=== PATIENT | male | born 1985 | race Caucasian/White ===

== ENCOUNTER 2017-12-14 10:54 | Emergency (ER) | payer OTHER ==
[~2017-12-14] VITALS: Ht 188 cm; Wt 111.1 kg
[2017-12-14] MEDS ORDERED: KETOROLAC TROME10 MG PO (11:10)
== END 2017-12-14 11:20 | disposition home or self-care (01) ==
LOC: ED 10:54
DX: S39.012A Strain of muscle, fascia and tendon of lower back, initial encounter (principal); M25.531 Pain in right wrist; Z87.891 Personal history of nicotine dependence; W19.XXXA Unspecified fall, initial encounter; Y93.89 Activity, other specified; Y92.89 Other specified places as the place of occurrence of the external cause; Y99.0 Civilian activity done for income or pay
CPT/HCPCS: 99283

== ENCOUNTER 2018-10-23 17:00 | Emergency (ER) | payer SELFPAY ==
[~2018-10-23] VITALS: Ht 188 cm; Wt 113.5 kg
[~2018-10-23 17:00] MED LIST: KETOROLAC TROME10 MG PO
[2018-10-23] MEDS ORDERED: DAYTIME COLD &237 ML PO (17:20)
[2018-10-23] MEDS ORDERED: PROMETH-CODEIN 65 ML PO (17:38)
[2018-10-23] MEDS ORDERED: ZITHROMAX250 MG PO (17:38)
[2018-10-23] MEDS ORDERED: VENTOLIN HFA18 GM INH (17:38)
== END 2018-10-23 17:52 | disposition home or self-care (01) ==
LOC: ED 17:00
DX: J40 Bronchitis, not specified as acute or chronic (principal); H66.91 Otitis media, unspecified, right ear; Z87.891 Personal history of nicotine dependence
CPT/HCPCS: 99283

== ENCOUNTER 2020-11-30 14:18 | Emergency (ER) | payer OTHER ==
[~2020-11-30] VITALS: Ht 188 cm; Wt 113.4 kg
[~2020-11-30 14:18] MED LIST changes: +DAYTIME COLD &237 ML PO; +PROMETH-CODEIN 65 ML PO; +VENTOLIN HFA18 GM INH; +ZITHROMAX250 MG PO
== END 2020-11-30 15:58 | disposition home or self-care (01) ==
LOC: ED 14:18
DX: S63.501A Unspecified sprain of right wrist, initial encounter (principal); S39.012A Strain of muscle, fascia and tendon of lower back, initial encounter; S40.812A Abrasion of left upper arm, initial encounter; V43.52XA Car driver injured in collision with other type car in traffic accident, initial encounter; Z87.891 Personal history of nicotine dependence
CPT/HCPCS: 71045; 72100; 73110; 90471; 90715; 99284-25

== ENCOUNTER 2024-09-22 14:58 | Emergency (ER) | payer OTHER ==
[~2024-09-22] VITALS: Ht 188 cm; Wt 116.3 kg
[~2024-09-22 14:58] MED LIST changes: +AMOXICILLIN500 MG PO; +LEVOFLOXACIN750 MG PO; +PREDNISONE20 MG PO; +VENTOLIN HFA18 GM
[2024-09-22 16:30] VITALS: BP 163/99
== END 2024-09-22 16:33 | disposition home or self-care (01) ==
LOC: ED 14:58
DX: S61.012A Laceration without foreign body of left thumb without damage to nail, initial encounter (principal); W26.0XXA Contact with knife, initial encounter; Y93.G3 Activity, cooking and baking; Y99.0 Civilian activity done for income or pay; Z87.891 Personal history of nicotine dependence
CPT/HCPCS: 12001; 99282